=== PATIENT | male | born 1995 | race Caucasian/White ===

== ENCOUNTER → 2024-04-17 | Outpatient (CLI) | payer OTHER ==
--- NOTE | 2024-04-21 08:08 | MR ---
EXAMINATION TYPE: MR knee LT wo con DATE OF EXAM: 04/17/2024 COMPARISON: Outside left knee x-ray April 07, 2024 HISTORY: left knee pain TECHNIQUE: Multiplanar, multisequence images of the knee is performed without IV contrast. FINDINGS: MEDIAL MENISCUS: Horizontal increased signal peripherally posterior horn approaches articular surface sagittal image 30 and coronal image 25. LATERAL MENISCUS: Anterior and posterior horns are intact without tear. CRUCIATE LIGAMENTS: The anterior and posterior cruciate ligaments are intact and unremarkable. COLLATERAL LIGAMENTS: The medial collateral ligament and lateral collateral ligament complex are inta ct and unremarkable. EXTENSOR MECHANISM: Visualized quadriceps and patellar tendons are intact. EFFUSION: No significant suprapatellar joint effusion. POPLITEAL CYST: No popliteal/henning cyst. TRICOMPARTMENT SPACES: Tricompartment joint spaces are preserved. No significant spurring. CARTILAGE: Tricompartmental articular cartilage is maintained. BONE MARROW SIGNAL: No focal abnormal marrow signal is appreciated. OTHER: No additional significant abnormality is appreciated. IMPRESSION: 1. Likely intrasubstance cannot definitively exclude full-thickness rim rent type tear posterior horn of medial meniscus. [facility], , 04/21/2024 8:06 AM
== END | disposition home or self-care (01) ==
LOC: RADMRIMAIN 19:10
PROVIDERS: ATTEND Orthopaedic Surgery
DX: M25.562 Pain in left knee (principal)